=== PATIENT | male | born 1995 | race Caucasian/White ===

== ENCOUNTER 2019-02-27 17:05 | Emergency (ER) | payer MEDICAID ==
[~2019-02-27] VITALS: Ht 167.6 cm; Wt 54.4 kg
[~2019-02-27 17:05] MED LIST: 70/30
[2019-02-27 17:11] VITALS: BP_SYST 164
[2019-02-27 17:26] VITALS: BP_SYST 162
== END 2019-02-27 17:26 ==
LOC: SED 17:05
DX: Z02.89 Encounter for other administrative examinations (principal); I10 Essential (primary) hypertension; E11.9 Type 2 diabetes mellitus without complications; Z87.81 Personal history of (healed) traumatic fracture; Z88.8 Allergy status to other drugs, medicaments and biological substances
CPT/HCPCS: 99283